=== PATIENT | male | born 1970 | race Caucasian/White ===

== ENCOUNTER 2019-02-16 08:12 | Day surgery (SDC) | payer OTHER ==
[2019-02-16] MEDS ORDERED: LACTATED RINGERS 1,000 ML IV ONE ×4 (11:12→12:32)
[2019-02-16] MEDS ORDERED: fentaNYL 250 MCG/5 ML VIAL IVP ONE ×2 (12:18)
[2019-02-16] MEDS ORDERED: MIDAZOLAM 2 MG/2 ML VIAL IVP ONE ×2 (12:18)
[2019-02-16 13:13] VITALS: BP 125/75
== END 2019-02-16 08:13 | disposition home or self-care (01) ==
LOC: SDS 08:12
PROVIDERS: ATTEND Surgery
PROC: 0DJD8ZZ Inspection of Lower Intestinal Tract, Via Natural or Artificial Opening Endoscopic (ICD-10-PCS; principal; 2019-02-16 12:15)
DX: Z12.11 Encounter for screening for malignant neoplasm of colon (principal); K64.8 Other hemorrhoids; E11.9 Type 2 diabetes mellitus without complications; G47.30 Sleep apnea, unspecified; Z79.82 Long term (current) use of aspirin; Z79.84 Long term (current) use of oral hypoglycemic drugs; Z87.891 Personal history of nicotine dependence
CPT/HCPCS: 45378; J3010; J7120